=== PATIENT | female | born 1965 | race Caucasian/White ===

== ENCOUNTER 2017-11-29 00:50 | Emergency (ER) | payer OTHER ==
[~2017-11-29] VITALS: Ht 152.4 cm; Wt 61.2 kg
[2017-11-29 00:50] VITALS: BP 131/68
--- NOTE | 2017-11-29 00:50 | NUR ---
PATIENT TRIAGED AND SENT TO ER LOBBY.
[2017-11-29 01:46] LABS: BASOPHILS # (AUTO) 0.1 K/uL (0.00-0.22); BASOPHILS % (AUTO) 0.9 % (0.0-2.0); EOSINOPHILS # (AUTO) 0.2 K/uL (0-0.4); EOSINOPHILS % (AUTO) 2.1 % (0.0-4.0); HEMATOCRIT 40.6 % (36-48); HEMOGLOBIN 13.8 g/dL (12.0-16.0); LYMPHOCYTES # (AUTO) 2.7 K/uL (2.5-16.5); LYMPHOCYTES % (AUTO) 22.1 % (20.5-51.1); MEAN CORPUSCULAR HEMOGLOBIN 29 pg (27-31); MEAN CORPUSCULAR HGB CONC 34 g/dL (33-37); MEAN CORPUSCULAR VOLUME 86.9 fL (80-94); MONOCYTES # (AUTO) 0.9 K/uL (0.8-1.0); MONOCYTES % (AUTO) 7.3 % (1.7-9.3); NEUTROPHILS # (AUTO) 8.1 K/uL (1.8-7.7); NEUTROPHILS % (AUTO) 67.6 % (42.2-75.2); PLATELET COUNT (AUTO) 385 K/uL (140-450); RED BLOOD CELL COUNT(AUTO) 4.68 MIL/uL (4.20-5.40); RED CELL DISTRIBUTION WIDTH 14.8 % (11.6-13.7)
[2017-11-29 02:01] LABS: ANION GAP 17.6 (8-16); CARBON DIOXIDE 22.1 mmol/L (21-32); CREATININE 0.7 mg/dL (0.6-1.3); POTASSIUM 3.7 mmol/L (3.5-5.1)
[2017-11-29 02:04] LABS: PROTHROMBIN TIME 10.1 secs (10.8-13.4)
[2017-11-29 02:07] LABS: ALBUMIN 3.6 g/dL (3.4-5.0); TOTAL BILIRUBIN 0.3 mg/dL (0.0-1.0)
--- NOTE | 2017-11-29 02:40 | NUR ---
PATIENT TO ER BED 2.
--- NOTE | 2017-11-29 02:45 | NUR ---
PATIENT PRESENTS TO ED WITH STABBING CHEST PAIN X16 HRS. PT DENIES N/V/D; SKIN IS PINK/WARM/DRY; AAOX4 WITH EVEN AND STEADY GAIT; LUNGS CLEAR BL; HR EVEN AND REGULAR; PT DENIES ANY FEVER, CP, SOB, OR COUGH AT THIS TIME; PATIENT STATES PAIN OF 8/10 AT THIS TIME; VSS; PATIENT POSITIONED FOR COMFORT; HOB ELEVATED; BEDRAILS UP X2; BED DOWN. ER MD MADE AWARE OF PT STATUS.
--- NOTE | 2017-11-29 02:46 | NUR ---
PATIENT BIB WHEELCHAIR TO ER BED 3.
[2017-11-29] MEDS ORDERED: KETOROLAC 60 MG/2 ML VIAL IM ONE (03:35)
[2017-11-29 04:08] VITALS: BP 131/68
--- NOTE | 2017-11-29 04:08 | NUR ---
Patient discharged with v/s stable. Written and verbal after care instructions given and explained. Patient verbalized understanding. Wheel Chair Assisted with to car. All questions addressed prior to discharge. Advised to follow up with PMD.
== END 2017-11-29 04:08 | disposition home or self-care (01) ==
LOC: MED 00:50
DX: R07.9 Chest pain, unspecified (principal); R20.0 Anesthesia of skin; Z86.73 Personal history of transient ischemic attack (TIA), and cerebral infarction without residual deficits
CPT/HCPCS: 36415; 71045; 80053; 83880; 84484; 85025; 85610; 85730; 93005; 96372; 99285; J1885